=== PATIENT | male | born 1995 | race Caucasian/White ===

== ENCOUNTER → 2018-02-06 | Day surgery (SDC) | payer OTHER ==
--- NOTE | 2018-02-05 15:15 | History & Physical Pre-Op ---
General Information and HPI History of Present Illness: Patient presents for evaluation of gallstones. He relates an episode of severe epigastric and right upper quadrant abdominal pain that waxed and waned over the course of a few days. It was quite severe for period of time for which he sought medical attention at a walk-in center. He was diagnosed with a ulcer and given a prescription for omeprazole. He notes no significant change to his symptoms with omeprazole. He has been adhering to a low-fat diet with improvement in his symptoms. Ultrasound performed by his primary care physician shows gallstones and sludge without biliary ductal dilatation. There is mild ALT elevation. Allergies/Medications Allergies: Coded Allergies: cefprozil (From CEFZIL) (HIVES 02/05/18) Past History Medical History Neurological: NONE EENT: NONE Cardiovascular: NONE Respiratory: asthma Gastrointestinal: NONE Hepatic: NONE Renal: NONE Musculoskeletal: NONE Psychiatric: NONE Endocrine: obesity Blood Disorders: NONE Cancer(s): NONE Surgical History Pertinent Surgical History: tonsils Past Family/Social History Psychosocial History Smoking Status: Never Smoked ETOH Use: occasional use Review of Systems Review of Systems: Patient reports abdominal pain but reports normal appetite, no vomiting, no vomiting blood, no bloating, no diarrhea, no belching, no constipation, no regurgitation, and no rectal bleeding. He reports no fatigue, no fever, no night sweats, no significant weight gain, no significant weight loss, and no exercise intolerance. He reports no abnormal moles, no jaundice, no hives, no eczema, and no rashes. He reports no swollen glands and no neck stiffness. He reports no cough, no wheezing, no shortness of breath, and no coughing up blood. He reports no chest pain, no arm pain on exertion, no shortness of breath when walking, no shortness of breath when lying down, no palpitations, and no known heart murmur. He reports no incontinence, no difficulty urinating, no hematuria, and no increased frequency. He reports no muscle aches, no muscle weakness, no arthralgias/joint pain, and no back pain. Exam & Diagnostic Data Last 24 Hrs of Vital Signs/I&O Intake & Output 02/05 1600 02/05 0800 08 0000 Intake Total Output Total Balance Patient 260 lb Weight Physical Exam: Patient is a 22-year-old male. Constitutional: General Appearance: healthy-appearing and obese. Level of Distress: no acute distress. Ambulation: ambulating normally. Head: Head: normocephalic and atraumatic. Neck: Neck: supple, trachea midline, no masses, and full range of motion. Thyroid: no enlargement or nodules and non-tender. Lymph Nodes: no cervical LAD, supraclavicular LAD, axillary LAD, or inguinal LAD. Cardiovascular: Heart Auscultation: normal S1 and S2; no murmurs, rubs, or gallops; and regular rate and rhythm. Lungs: Respiratory effort: no dyspnea. Percussion: no dullness, flatness, or hyperresonance. Auscultation: no wheezing, rales/crackles, or rhonchi and breath sounds normal, good air movement, and clear to auscultation. Back: Thoracolumbar Appearance: normal curvature. Abdomen: Inspection and Palpation: no tenderness, guarding, masses, rebound tenderness, or CVA tenderness and soft and non-distended. Bowel Sounds: normal. Liver: non-tender and no hepatomegaly. Spleen: non-tender and no splenomegaly. Hernia: none palpable. Skin: Inspection and palpation: no rash, lesions, ulcer, induration, nodules, jaundice, or abnormal nevi and good turgor. Musculoskeletal:: Extremities: no cyanosis, edema, varicosities, or palpable cord. Motor Strength and Tone: normal tone and motor strength. Joints, Bones, and Muscles: no contractures, malalignment, tenderness, or bony abnormalities and normal movement of all extremities. Assessment/Plan Assessment/Plan: 1. Gallbladder pain - Patient presents with classic symptoms of gallbladder pain. There is mild elevation of his AST. This may be due to choledocholithiasis which has since resolved. His LFT should be repeated prior to surgery. Recommend laparoscopic cholecystectomy at his earliest convenience. K80.21: Calculus of gallbladder without cholecystitis with obstruction 2. Calculus of bile duct with obstruction K80.51: Calculus of bile duct without cholangitis or cholecystitis with obstruction Discussion Notes Discussed outpatient laparoscopic cholecystectomy under general anesthesia. Discussed the side effects of cholecystectomy including diarrhea. Discussed the recovery period and complications including bleeding, infection, conversion to open and bile duct injury requiring reconstruction As Ranked By This Provider Problem List: 1. Calculus of gallbladder without cholecystitis with obstruction
[~2018-02-06] VITALS: Ht 182.9 cm; Wt 117.9 kg
[~2018-02-06] MED LIST: PERCOCET 5-3251 EACH PO
--- NOTE | 2018-02-06 09:41 | Operative Report ---
Operative/Inv Procedure Report Surgery Date: 02/06/18 Name of Procedure: Laparoscopic cholecystectomy Pre-Operative Diagnosis: Biliary colic Post-Operative Diagnosis: Same Estimated Blood Loss: scant Surgeon/Drop Hammer Setter Up: Gagandeep MASTERSON,Rob Schmitz/Mario BARRERA Anesthesia: general endotracheal tube Specimens: Gallbladder Operative/Procedure Note Note: After informed consent patient is brought to the operating room and laid supine. General anesthesia was obtained and her abdomen was prepped and draped. The skin above the umbilicus infiltrated with local anesthesia and a curvilinear incision made sharply. We came down through the subcutaneous tissues bluntly and grasped the fascia with Rodney's. A fasciotomy was created sharply and stay sutures placed. The peritoneum was entered sharply and a blunt Rosario port was placed. Pneumoperitoneum was achieved. 3, 5 mm ports were placed in the epigastrium and right upper quadrant after local anesthesia was instilled and under direct vision the camera. She's placed in reverse Trendelenburg and rotated towards the left. The gallbladder is identified. It was grasped at the dome and retracted towards the head. Infundibulum was then grasped. Adhesions to the undersurface were taken down with blunt and cautery dissection. We dissected both sides the triangle Calot peritoneal tissue with cautery. The artery was medial and its normal anatomic position. It was cauterized medially to allow it to be mobilized away from the duct. [place] was cleared of areolar tissue with cautery. The arteries and duct were doubly ligated with clips. Gallbladder is removed from the fossa electrocautery. There was a posterior branch of the artery which was clipped ligated with the gallbladder. The gallbladder was placed in Endo Catch bag and cinched up. Right upper quadrant was and suction irrigated normal saline. Hemostasis achieved with cautery. The ports were then removed and the gallbladder delivered and passed off the field. The fascia was closed with 0 Vicryl suture. Skin incisions closed with 4-0 Vicryl. Steri-Strips and sterile dressing applied. Sponge and needle counts are correct. CC: Abiodun MASTERSON,Florentin Linares
== END ==
LOC: STS 02:07
DX: K80.10 Calculus of gallbladder with chronic cholecystitis without obstruction (principal); J45.909 Unspecified asthma, uncomplicated
CPT/HCPCS: 36415; J1580; J2250; J2405